=== PATIENT | female | born 1945 | race Caucasian/White ===

== ENCOUNTER 2019-11-24 06:12 | Day surgery (SDC) | payer SELFPAY ==
[2019-11-18 14:41] VITALS: BMI 22.8
[2019-11-24] MEDS ORDERED: DEXAMETHASONE SOD PHOSPHATE 4 MG/1 ML VIAL ONE ×2 (07:09→10:37)
[2019-11-24] MEDS ORDERED: ceFAZolin SODIUM 1 GM VIAL ONE (07:09)
[2019-11-24] MEDS ORDERED: ONDANSETRON 4 MG/2 ML VIAL ONE (07:09)
[2019-11-24] MEDS ORDERED: fentaNYL CITRATE 250 MCG/5 ML VIAL ONE (07:09)
[2019-11-24] MEDS ORDERED: MIDAZOLAM HCL 2 MG/2 ML SINGLE DOSE VIAL ONE (07:10)
[2019-11-24] MEDS ORDERED: ROCURONIUM BROMIDE 50 MG/5 ML VIAL ONE (07:10)
[2019-11-24] MEDS ORDERED: PROPOFOL 20 ML ONE ×4 (07:10→11:08)
[2019-11-24] MEDS ORDERED: SUCCINYLCHOLINE CHLORIDE 200 MG/10 ML SYRINGE ONE (07:10)
[2019-11-24] MEDS ORDERED: SODIUM BICARBONATE 8.4% 50 MEQ/50 ML VIAL ONE (07:26)
[2019-11-24] MEDS ORDERED: LIDOCAINE HCL 1%, 10 MG/ML (20ML VIAL) ONE (07:26)
[2019-11-24] MEDS ORDERED: EPINEPHrine/PF 1 MG/1 ML (1:1,000) AMPULE ONE (07:26)
[2019-11-24] MEDS ORDERED: TRANEXAMIC ACID 1000 MG/10 ML VIAL ONE (07:26)
[2019-11-24] MEDS ORDERED: ePHEDrine SULFATE 50 MG/1 ML AMPULE ONE (08:24)
[2019-11-24] MEDS ORDERED: ACETAMINOPHEN 1000 MG/100 ML VIAL (NON FORMULARY) IVPB ONE ×2 (12:00→12:30)
[2019-11-24] MEDS ORDERED: ONDANSETRON 4 MG/2 ML VIAL IVPUSH PRN (12:29)
[2019-11-24] MEDS ORDERED: PROMETHAZINE HCL 25 MG/1 ML VIAL IVPUSH PRN (12:29)
[2019-11-24] MEDS ORDERED: oxyCODONE HCL 5 MG TABLET PO PRN ×2 (12:29)
[2019-11-24 13:38] VITALS: PULSE 88; TEMP 97.6
[2019-11-24 14:37] VITALS: BP 124/70
--- NOTE | 2019-11-30 10:34 | OP ---
DATE OF OPERATION: DATE OF DICTATION: 11/30/2019 INDICATIONS: Patient is a 74-year-old female who desired a facelift to improve the appearance of her face and neck. We described the procedure in great detail, went over potential risks and complications including but not limited to infection, bleeding, seroma, hematoma, prolonged pain and swelling or scarring, asymmetry, need for revision surgery, facial nerve damage, suboptimal results, adverse reaction to anesthesia, DVT, PE, CVA, heart attack and . With this understanding the patient elected to proceed with the operation. DESCRIPTION OF PROCEDURE: After preoperative photos and markings were done and reviewed with the patient, the patient was taken to the operating room and placed in supine position. After uneventful intubation, soft tissues were infiltrated with dilute lidocaine solution with epinephrine. The face was then prepped and redraped in standard fashion. Lipodissection was then carried out in the submental region on low wall suction with a 2-mm cannula. Incisions were then as marked preoperatively in the preauricular space. Soft tissue dissection was carried out in the subcutaneous plane to the level of the mid cheek submentally, to hyoid bone inferiorly, to sternocleidomastoid muscle laterally. With complete hemostasis secured, the SMAS and platysma were imbricated using a 3-0 Vicryl suture with U-shaped stitches. Eight sutures were placed about 1 cm apart, elevating the SMAS and platysma in superior and posterior directions. Excess skin was then trimmed without tension and the wounds were closed in layers using 3-0 Vicryl and 5-0 Monocryl sutures. Prior to final closure excellent hemostasis was assured. The same procedure was performed on the contralateral side. After completion of both sides, good symmetry was assured and a sterile dressing was applied to the incisions. The patient was then extubated and taken to recovery room in stable condition. She was discharged home from the recovery room without incident. No drains were used. Estimated blood loss was minimal. No specimens were sent. No complications. Sponge and needle count was correct. MD SHELDON BOWMAN/[id number]
== END 2019-11-24 14:25 | disposition home or self-care (01) ==
LOC: FASU 06:12
PROVIDERS: ATTEND Plastic Surgery
PROC: 0W020ZZ Alteration of Face, Open Approach (ICD-10-PCS; principal; 2019-11-24 08:27)
DX: Z41.1 Encounter for cosmetic surgery (principal)
CPT/HCPCS: 94760; J0131